=== PATIENT | female | born 1935 | race Asian ===

== ENCOUNTER 2019-04-03 10:16 | Day surgery (SDC) | payer OTHER, BC ==
[2019-04-02 10:11] VITALS: BMI 27.6
[2019-04-03] MEDS ORDERED: ONDANSETRON 4 MG/2 ML VIAL IVPUSH PRN (12:01)
[2019-04-03] MEDS ORDERED: LACTATED RINGERS SOLUTION 1,000 ML IV SCH (12:15)
[2019-04-03] MEDS ORDERED: LIDOCAINE HCL 1%, 10 MG/ML (20ML VIAL) ONE (12:15)
[2019-04-03] MEDS ORDERED: PROPOFOL 20 ML ONE ×4 (12:15→13:33)
[2019-04-03] MEDS ORDERED: BUPIVACAINE HCL/PF 0.25% (2.5MG/ML) 10 ML VIAL ONE (12:15)
[2019-04-03] MEDS ORDERED: ceFAZolin SODIUM 1 GM VIAL IVPB ONE (12:30)
[2019-04-03] MEDS ORDERED: LIDOCAINE HCL 1%, 10 MG/ML (20ML VIAL) INF ONE (12:31)
[2019-04-03] MEDS ORDERED: BACITRACIN 15 GM TUBE TOPICAL OINTMENT ONE (14:02)
[2019-04-03] MEDS ORDERED: BUPIVACAINE HCL/PF 0.25% (2.5MG/ML) 10 ML VIAL IJ ONE (14:10)
[2019-04-03] MEDS ORDERED: ACETAMINOPHEN 1000 MG/100 ML VIAL (NON FORMULARY) IVPB ONE (14:32)
[2019-04-03 15:47] VITALS: TEMP 97.6
[2019-04-03 16:45] VITALS: BP 125/62; PULSE 78
--- NOTE | 2019-04-07 17:03 | PATH ---
Surgical Pathology Report Patient Name: TRACY OGLESBY Med. Rec. #: [id number] /Age/Gender: 1935 (Age: 83) / F Account: [id number] Location: [facility] Taken: 04/03/2019 Received: 04/06/2019 Reported: 04/07/2019 Physicians: Frankie Saunders DPM Specimen(s) Received BONE AND SOFT TISSUE RIGHT FOOT Clinical History Right foot bunion Final Diagnosis BONE AND SOFT TISSUE, FOOT, RIGHT, BUNIONECTOMY: BONE WITH DEGENERATIVE CHANGES AND DENSE FIBROCONNECTIVE TISSUE. Electronically Signed Oly Reyes M.D. Gross Description Received in formalin labeled "bone and soft tissue right foot" is a piece of bone which measures 2 x 2 x 0.3 cm and 2 pieces of soft tissue ranging in size from 1-1.8 cm. Entire specimen is submitted after brief decalcification in one cassette. MLSZ/04/06/2019 maite/04/06/2019
--- NOTE | 2019-04-22 17:42 | OP ---
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 SURGEON: Bryon Saunders DPM ANESTHESIA: General anesthesia. HEMOSTASIS: Ankle tourniquet inflated 250 mmHg. PROCEDURE: Patient was prepped and draped in the usual manner and sent to the OR in stable condition, where general anesthesia was administered, and the foot was prepped and draped in the usual manner. Local anesthetic of 18 mL lidocaine plain 1% was administered proximally. Upon achieving complete anesthesia, the procedure commenced. Attention was directed to the dorsal aspect of the right foot, where a linear incision was made over the dorsal aspect of the right 1st metatarsal, extending to the level of the proximal phalanx. The incision was deepened via blunt and sharp dissection. Any bleeders that were noted were cauterized with a Bovie unit or tied off with 3-0 Vicryl suture. At this time, a linear incision was made over the dorsal aspect of the capsule, thereby reflecting both metatarsal and proximal phalanx into the operative field. Utilizing blunt dissection and sharp dissection, the periosteum and capsule was reflected, thereby exposing the metatarsal and the phalanx. Utilizing power microsagittal saw, the medial eminence of the right 1st metatarsal was removed and preparation for the Micheal osteotomy, which was made through and through with a microsagittal saw. Upon reducing the intermetatarsal angle. The bone was clamped and then fixated with 3.0 cannulated screw. Once stabilized, a power microsagittal saw was used to remove the medial dorsal and dorsal medial eminence and the bone was then smoothed out in the appropriate manner. At this time the wound was then flushed out with copious amounts of sterile water. Attention was then directed to the proximal phalanx, where an Ming osteotomy was made through and through with a power microsagittal saw, thereby effectively closing down the hallux valgus angle. Once this was completed and the toe was noted to be in a straight position, the Ming osteotomy was fixated with both compressive levi as well as a customary point of fixation with a 0.54 K-wire. At this time, the construct was noted to be linear, and was then again flushed out with copious amounts of sterile water. The skin was closed with a combination of 3-0 Vicryl, 4-0 Vicryl, and 4-0 nylon suture. Postoperative injection of 20 mL Marcaine plain 0.25% was then administered. Application of a dry, sterile compressive dressing. Patient was placed in a CAM boot postoperatively. After dropping the tourniquet, there was an instantaneous hyperemic response noted to return to all digits of the operative foot. Again, patient was stable throughout the entire procedure and sent to PACU in stable condition. BRYON SAUNDERS DPM [id number] / [id number]
== END 2019-04-03 16:46 | disposition home or self-care (01) ==
LOC: JASU-SURG 10:16
PROVIDERS: ATTEND Podiatrist Foot Surgery
PROC: 0QSN04Z Reposition Right Metatarsal with Internal Fixation Device, Open Approach (ICD-10-PCS; principal; 2019-04-03 12:00)
DX: M20.11 Hallux valgus (acquired), right foot (principal); M21.611 Bunion of right foot; I10 Essential (primary) hypertension
CPT/HCPCS: 88304-TC; 88311-TC; 94760